=== PATIENT | female | born 1990 | race African-American/Black ===

== ENCOUNTER 2016-04-14 20:38 | Emergency (ER) | payer OTHER ==
[~2016-04-14] VITALS: Ht 177.8 cm; Wt 74.8 kg
[~2016-04-14 20:38] MED LIST: AUROGUARD OTIC15 ML OT; NOHOMEMEDICATIONS; ZOFRAN ODT4 MG PO
[2016-04-14 22:46] LABS: URINE BILIRUBIN NEGATIVE (Negative); URINE BLOOD 1+ (Negative); URINE COLOR YELLOW; URINE GLUCOSE-RANDOM* NEGATIVE (Negative); URINE KETONES NEGATIVE (Negative); URINE LEUKOCYTES-REFLEX 3+ (Negative); URINE PROTEIN (DIPSTICK) TRACE (Negative); URINE SPECIFIC GRAVITY >= 1.030 (1.003-1.035); URINE UROBILINOGEN 0.2 E.U./dl (0.2-1.0)
[2016-04-14 22:56] LABS: CASTS None Seen /LPF (None Seen); CRYSTALS None Seen /LPF (None Seen); SQUAMOUS 4-10 Moderate /LPF (0-3)
[2016-04-14 22:57] LABS: URINE RBC 0-2 Rare /HPF (0-2); URINE WBC-REFLEX 0-5 Rare /HPF (0-5)
[2016-04-15] MEDS ORDERED: MACROBID 100 M100 M1 PO (00:26)
[2016-04-15] MEDS ORDERED: DIFLUCAN150 MG PO (00:27)
[2016-04-15 00:44] VITALS: BP 120/62
[2016-04-18 13:07] LABS: CHLAMYDIA TRACHOMATIS-PCR Negative (Negative); NEISSERIA GONORRHEA-PCR Negative (Negative)
== END 2016-04-15 00:45 | disposition home or self-care (01) ==
LOC: ER 20:38
PROVIDERS: Physician Assistant
DX: B37.49 Other urogenital candidiasis (principal); Z20.2 Contact with and (suspected) exposure to infections with a predominantly sexual mode of transmission; F10.99 Alcohol use, unspecified with unspecified alcohol-induced disorder

== ENCOUNTER 2017-07-10 17:20 | Emergency (ER) | payer BC, OTHER ==
[~2017-07-10] VITALS: Ht 152.4 cm; Wt 81.7 kg
[~2017-07-10 17:20] MED LIST changes: +DIFLUCAN150 MG PO; +IBUPROFEN 600600 M1 PO; +MACROBID 100 M100 M1 PO
[2017-07-10 17:36] LABS: URINE BILIRUBIN NEGATIVE (Negative); URINE BLOOD NEGATIVE (Negative); URINE CLARITY CLEAR; URINE COLOR YELLOW; URINE GLUCOSE-RANDOM* NEGATIVE (Negative); URINE KETONES NEGATIVE (Negative); URINE LEUKOCYTES NEGATIVE (Negative); URINE NITRITE NEGATIVE (Negative); URINE PROTEIN (DIPSTICK) NEGATIVE (Negative); URINE SPECIFIC GRAVITY 1.025 (1.005-1.035); URINE UROBILINOGEN 0.2 E.U./dl (0.2-1.0)
[2017-07-10 19:19] VITALS: BP 135/99
[2017-07-12 11:08] LABS: NEISSERIA GONORRHEA-PCR Negative (Negative)
== END 2017-07-10 19:19 | disposition home or self-care (01) ==
LOC: ER 17:20
PROVIDERS: Physician Assistant
DX: N89.8 Other specified noninflammatory disorders of vagina (principal)

== ENCOUNTER 2018-04-13 07:51 | Emergency (ER) | payer BC, OTHER ==
[~2018-04-13] VITALS: Ht 152.4 cm; Wt 90.3 kg
[2018-04-13 08:57] VITALS: BP 128/62
== END 2018-04-13 08:30 | disposition home or self-care (01) ==
LOC: ER 07:51
DX: S40.861A Insect bite (nonvenomous) of right upper arm, initial encounter (principal); S40.862A Insect bite (nonvenomous) of left upper arm, initial encounter; W57.XXXA Bitten or stung by nonvenomous insect and other nonvenomous arthropods, initial encounter; Y92.89 Other specified places as the place of occurrence of the external cause; Y93.89 Activity, other specified; Y99.8 Other external cause status

== ENCOUNTER 2018-09-26 19:28 | Emergency (ER) | payer BC, OTHER ==
[~2018-09-26] VITALS: Ht 152.4 cm; Wt 81.2 kg
[~2018-09-26 19:28] MED LIST changes: +CYCLOBENZAPRINE5 MG PO
[2018-09-26 19:40] VITALS: BP 143/103
[2018-09-26] MEDS ORDERED: BIRTH CONTROL PO (19:44)
[2018-09-26] MEDS ORDERED: MOBIC7.5 MG PO (20:56)
== END 2018-09-26 21:19 | disposition home or self-care (01) ==
LOC: ER 19:28
DX: S50.11XA Contusion of right forearm, initial encounter (principal); Z98.890 Other specified postprocedural states; V89.2XXA Person injured in unspecified motor-vehicle accident, traffic, initial encounter; Y92.89 Other specified places as the place of occurrence of the external cause; Y93.89 Activity, other specified; Y99.8 Other external cause status